=== PATIENT | male | born 1960 | race Caucasian/White ===

== ENCOUNTER 2024-12-17 12:05 | Emergency (ER) | payer MEDICARE ==
[~2024-12-17] VITALS: Ht 162.6 cm; Wt 74.3 kg
[2024-12-17 12:34] VITALS: O2SAT 100
[2024-12-17 14:30] LABS: CLARITY URINE CLEAR (CLEAR); COLOR URINE YELLOW (YELLOW); GLUCOSE URINE 2+ (NEGATIVE); KETONES URINE TRACE (NEGATIVE); LEUKOCYTE ESTERASE URINE NEGATIVE (NEGATIVE); NITRITE URINE NEGATIVE (NEGATIVE); OCCULT BLOOD URINE TRACE (NEGATIVE); PH URINE 5.5 (4.5-8.0); PROTEIN URINE 1+ (NEGATIVE); SPECIFIC GRAVITY URINE 1.025 (1.005-1.030); UROBILINOGEN URINE 0.2 E.U./dL (0.2-1.0)
[2024-12-17 14:47] LABS: MUCUS URINE TRACE /lpf (NONE/TRACE)
[2024-12-17 14:49] LABS: CALCIUM OXALATE CRYSTALS URINE 1+ /lpf; SQUAMOUS EPITHELIAL CELL URINE RARE /lpf (RARE/1+)
[2024-12-17 14:50] LABS: BACTERIA URINE TRACE; RBC URINE 0-2 /hpf (0-2); WBC URINE 0-2 /hpf (0-2)
[2024-12-17] MEDS: IBUPROFEN 600MG TABLET PO NR (15:59)
[2024-12-17] MEDS: LIDOCAINE HCL/PF 1% 10 MG/ML 5ML VIAL INFIL NR (16:00)
[2024-12-17] MEDS: CEFTRIAXONE SODIUM 1G VIAL IM NR (16:00)
[2024-12-17] MEDS ORDERED: LEVO-65 MT (16:17)
[2024-12-17] MEDS ORDERED: T3 PO (16:17)
[2024-12-17] MEDS ORDERED: NAPR-681 MT (16:17)
[2024-12-17 16:27] VITALS: BP 166/77; PULSE 83; RESP 18; TEMP 37.3; O2SAT 97
== END 2024-12-17 16:28 | disposition home or self-care (01) ==
LOC: ER 12:05
DX: N45.3 Epididymo-orchitis (principal); N43.3 Hydrocele, unspecified; I10 Essential (primary) hypertension; E11.9 Type 2 diabetes mellitus without complications; Z79.899 Other long term (current) drug therapy
CPT/HCPCS: 99285; 93976; 81003; 87086; 76870; 96372; J0696; J2003

== ENCOUNTER 2024-12-20 12:36 | Emergency (ER) | payer MEDICARE, MEDICAID ==
[~2024-12-20] VITALS: Ht 160 cm; Wt 96.0 kg
[~2024-12-20 12:36] MED LIST: LEVO-65 MT; NAPR-681 MT; T3 PO
[2024-12-20 12:39] VITALS: O2SAT 99
[2024-12-20 13:36] VITALS: BP 154/95; PULSE 88; RESP 16; TEMP 36.9; O2SAT 99
== END 2024-12-20 13:36 | disposition home or self-care (01) ==
LOC: ER 12:36
DX: Z00.8 Encounter for other general examination (principal); E11.9 Type 2 diabetes mellitus without complications; I10 Essential (primary) hypertension; Z79.899 Other long term (current) drug therapy
CPT/HCPCS: 99281